=== PATIENT | male | born 1985 | race Two or more races ===

== ENCOUNTER 2017-06-16 14:42 | Inpatient (IN) | payer OTHER ==
[~2017-06-16] VITALS: Ht 172.7 cm; Wt 88.4 kg
[2017-06-16] MEDS ORDERED: ONDANSETRON ODT 4 MG PO ONE (15:30)
[2017-06-16 15:47] LABS: HEMATOCRIT 49.7 % (39.2-51.8); HEMOGLOBIN 16.9 g/dL (13.7-18.0); WHITE BLOOD COUNT 20.4 x10^3/uL (3.4-10)
[2017-06-16 16:01] LABS: ASPARTATE AMINO TRANSFERASE 21 U/L (15-37); BLOOD UREA NITROGEN 12 mg/dL (7-18)
[2017-06-16] MEDS ORDERED: ONDANSETRON ODT 4 MG ONE (16:17)
[2017-06-16] MEDS ORDERED: PHENAZOPYRIDINE 200 MG TABLET ONE (16:28)
[2017-06-16] MEDS ORDERED: MORPHINE SULFATE 4 MG/ML, 1ML ONE (16:28)
[2017-06-16] MEDS ORDERED: ONDANSETRON 2MG/ML, 2ML IVPush ONE (16:30)
[2017-06-16] MEDS ORDERED: MORPHINE SULFATE 4 MG/ML, 1ML IVPush PRN (16:30)
[2017-06-16] MEDS ORDERED: SODIUM CHLORIDE 0.9% 1,000ML IVBOLUS ONE (16:30)
[2017-06-16] MEDS ORDERED: SODIUM CHLORIDE FLUSH 10ML SYR IVF ONE (16:30)
[2017-06-16] MEDS ORDERED: PHENAZOPYRIDINE 200 MG TABLET PO ONE (16:30)
[2017-06-16] MEDS ORDERED: OMNIPAQUE 350 MG/ML, 100ML BOTTLE ONE (17:22)
[2017-06-16] MEDS ORDERED: CIPROFLOXACIN/PMX 400MG/200ML 200 ML IV ONE (18:00)
[2017-06-16] MEDS ORDERED: CIPROFLOXACIN/PMX 400MG/200ML 200 ML ONE (18:18)
[2017-06-16] MEDS ORDERED: METRONIDAZOLE PMX 500MG/100ML 100 ML IV ONE (19:00)
[2017-06-16] MEDS ORDERED: ONDANSETRON 2MG/ML, 2ML IVPush PRN (20:00)
[2017-06-16] MEDS ORDERED: ENALAPRILAT 1.25 MG/ML, 2ML IVPush PRN (20:00)
[2017-06-16] MEDS ORDERED: morphine SULFATE 10 MG/ML, 1ML IVPush PRN (20:00)
[2017-06-16 20:24] VITALS: BP 128/80
[2017-06-16 21:01] VITALS: BP_SYST 159; BP_SYST 160; BP_DIAS 101; BP_DIAS 104
[2017-06-16] MEDS: D5%-0.9% NACL+KCL 20MEQ 1,000 ML IV SCH (21:26)
[2017-06-16] MEDS: PIPERACILLIN/TAZO/PMX 3.375GM 50 ML IV SCH (21:27)
[2017-06-17 02:57] VITALS: BP 133/78
[2017-06-17] MEDS: PIPERACILLIN/TAZO/PMX 3.375GM 50 ML IV SCH ×4 (03:42→21:03)
[2017-06-17 05:12] LABS: HEMATOCRIT 41.9 % (39.2-51.8); HEMOGLOBIN 14.5 g/dL (13.7-18.0)
[2017-06-17 05:16] LABS: BLOOD UREA NITROGEN 10 mg/dL (7-18)
[2017-06-17 05:21] LABS: ASPARTATE AMINO TRANSFERASE 15 U/L (15-37)
[2017-06-17] MEDS: D5%-0.9% NACL+KCL 20MEQ 1,000 ML IV SCH ×3 (07:29→16:09)
[2017-06-17 07:37] VITALS: BP 129/77
[2017-06-17 13:45] VITALS: BP 144/73
[2017-06-17] MEDS: OXYcodone IR 5MG TABLET PO PRN ×2 (13:54→14:36)
[2017-06-17 19:53] VITALS: BP 144/87
[2017-06-18 00:48] VITALS: BP 142/81
[2017-06-18] MEDS: D5%-0.9% NACL+KCL 20MEQ 1,000 ML IV SCH ×2 (02:00→09:41)
[2017-06-18] MEDS: PIPERACILLIN/TAZO/PMX 3.375GM 50 ML IV SCH ×4 (03:20→21:13)
[2017-06-18 04:48] LABS: HEMATOCRIT 40.9 % (39.2-51.8); HEMOGLOBIN 14.1 g/dL (13.7-18.0); WHITE BLOOD COUNT 11.3 x10^3/uL (3.4-10)
[2017-06-18 04:56] LABS: BLOOD UREA NITROGEN 9 mg/dL (7-18)
[2017-06-18 08:31] VITALS: BP 129/79
[2017-06-18 14:08] VITALS: BP 153/91
[2017-06-18] MEDS: D5%-0.9% NACL 1,000 ML IV SCH (15:37)
[2017-06-18 18:57] VITALS: BP 162/99
[2017-06-19] VITALS (8 sets, daily range): BP systolic 132–166; BP diastolic 83–110
[2017-06-19] MEDS: PIPERACILLIN/TAZO/PMX 3.375GM 50 ML IV SCH ×4 (03:53→21:44)
[2017-06-19] MEDS: D5%-0.9% NACL 1,000 ML IV SCH ×3 (03:54→15:58)
[2017-06-19 05:01] LABS: HEMATOCRIT 42.5 % (39.2-51.8); HEMOGLOBIN 14.4 g/dL (13.7-18.0); WHITE BLOOD COUNT 8.3 x10^3/uL (3.4-10)
[2017-06-19 05:09] LABS: BLOOD UREA NITROGEN 9 mg/dL (7-18)
[2017-06-19 05:14] LABS: ASPARTATE AMINO TRANSFERASE 27 U/L (15-37)
[2017-06-19] MEDS: hydrALAzine 20 MG/ML, 1ML IVPush PRN (19:29)
[2017-06-20 01:38] VITALS: BP 150/87
[2017-06-20] MEDS: D5%-0.9% NACL 1,000 ML IV SCH ×2 (01:47→10:13)
[2017-06-20] MEDS: PIPERACILLIN/TAZO/PMX 3.375GM 50 ML IV SCH ×4 (04:32→22:01)
[2017-06-20 04:40] LABS: HEMATOCRIT 41.7 % (39.2-51.8); HEMOGLOBIN 14.6 g/dL (13.7-18.0); WHITE BLOOD COUNT 8.6 x10^3/uL (3.4-10)
[2017-06-20 04:48] LABS: BLOOD UREA NITROGEN 7 mg/dL (7-18)
[2017-06-20 04:53] LABS: ASPARTATE AMINO TRANSFERASE 23 U/L (15-37)
[2017-06-20 08:15] VITALS: BP 140/96
[2017-06-20] MEDS: SODIUM CHLORIDE 0.9% 1,000 ML IV SCH ×2 (12:11→22:00)
[2017-06-20 13:37] VITALS: BP 155/100
[2017-06-20 18:41] VITALS: BP 155/99
[2017-06-21 02:32] VITALS: BP 139/99
[2017-06-21] MEDS: PIPERACILLIN/TAZO/PMX 3.375GM 50 ML IV SCH ×3 (04:37→21:43)
[2017-06-21 04:47] LABS: HEMATOCRIT 43.8 % (39.2-51.8); HEMOGLOBIN 15.2 g/dL (13.7-18.0); WHITE BLOOD COUNT 8.9 x10^3/uL (3.4-10)
[2017-06-21 04:55] LABS: ASPARTATE AMINO TRANSFERASE 23 U/L (15-37); BLOOD UREA NITROGEN 9 mg/dL (7-18)
[2017-06-21 07:31] VITALS: BP 136/74
[2017-06-21] MEDS: SODIUM CHLORIDE 0.9% 1,000 ML IV SCH (08:41)
[2017-06-21] MEDS ORDERED: OMNIPAQUE 350 MG/ML, 100ML BOTTLE ONE (13:40)
[2017-06-21 14:06] VITALS: BP 189/112
[2017-06-21] MEDS: hydrALAzine 20 MG/ML, 1ML IVPush PRN (14:24)
[2017-06-21 19:30] VITALS: BP 157/98
[2017-06-21 21:38] VITALS: BP 158/96
[2017-06-22] MEDS: PIPERACILLIN/TAZO/PMX 3.375GM 50 ML IV SCH ×4 (02:16→23:00)
[2017-06-22 02:22] VITALS: BP 129/83
[2017-06-22] MEDS: SODIUM CHLORIDE 0.9% 1,000 ML IV SCH ×3 (03:30→14:52)
[2017-06-22 04:37] LABS: HEMOGLOBIN 16.1 g/dL (13.7-18.0); WHITE BLOOD COUNT 8.7 x10^3/uL (3.4-10)
[2017-06-22 04:48] LABS: ASPARTATE AMINO TRANSFERASE 20 U/L (15-37); BLOOD UREA NITROGEN 11 mg/dL (7-18)
[2017-06-22 09:00] VITALS: BP 141/96
[2017-06-22 13:00] VITALS: BP 150/90
[2017-06-22 19:25] VITALS: BP 152/107
[2017-06-23] MEDS: SODIUM CHLORIDE 0.9% 1,000 ML IV SCH (02:57)
[2017-06-23 03:00] VITALS: BP 127/86
[2017-06-23] MEDS: PIPERACILLIN/TAZO/PMX 3.375GM 50 ML IV SCH ×2 (04:30→11:15)
[2017-06-23 05:22] LABS: HEMATOCRIT 46.2 % (39.2-51.8); HEMOGLOBIN 15.7 g/dL (13.7-18.0); WHITE BLOOD COUNT 7.8 x10^3/uL (3.4-10)
[2017-06-23 05:45] LABS: ASPARTATE AMINO TRANSFERASE 18 U/L (15-37); BLOOD UREA NITROGEN 12 mg/dL (7-18)
[2017-06-23 07:25] VITALS: BP 158/94
[2017-06-23] MEDS ORDERED: CIPR500T87 PO (11:38)
[2017-06-23] MEDS ORDERED: METR500T PO (11:39)
[2017-06-23] MEDS ORDERED: OXYC5TAB3 PO (11:40)
[2017-06-23] MEDS ORDERED: HYDR-3240 PO (13:21)
== END 2017-06-23 13:50 | disposition home health service (06) | DRG 872 ==
LOC: ED 18:19 → EDIP 18:27 → 4WST 20:18 → 3NW 20:56 → DCLOUNGE 06-23 13:12
PROVIDERS: ADMIT Internal Medicine; ATTEND Internal Medicine
DX: A41.9 Sepsis, unspecified organism (principal); K57.32 Diverticulitis of large intestine without perforation or abscess without bleeding; N39.0 Urinary tract infection, site not specified; F10.10 Alcohol abuse, uncomplicated; F12.10 Cannabis abuse, uncomplicated; I10 Essential (primary) hypertension; R33.9 Retention of urine, unspecified; R10.2 Pelvic and perineal pain; R16.0 Hepatomegaly, not elsewhere classified; Z85.47 Personal history of malignant neoplasm of testis; Z92.21 Personal history of antineoplastic chemotherapy
CPT/HCPCS: 36415; 74177; 80048; 80053; 80061; 81001; 83036; 83605; 83735; 84439; 84443; 85025; 87040; 87086; 87324; 96361; 96365; 96366; 96375; J0744; J2543; J7042; Q0162; Q9967; J0360; J2270; J3480; J7030